=== PATIENT | male | born 1990 ===

== ENCOUNTER 2020-09-10 20:08 | Emergency (ER) | payer MEDICAID, SELFPAY ==
[2020-09-10 20:10] VITALS: BP 177/76; PULSE 91; RESP 18; TEMP 37.2; O2SAT 98; BMI 31.5
[2020-09-10 20:17] VITALS: BP 177/76; PULSE 100; RESP 18; TEMP 37.2; O2SAT 98
--- NOTE | 2020-09-10 21:14 | ED_ITS ---
HPI - Dental/Oral General Chief complaint: Dental/Oral Stated complaint: Facial swelling Time Seen by Provider: 09/10/20 21:14 Source: patient Mode of arrival: ambulatory Limitations: no limitations History of Present Illness HPI Narrative: This is a 30-year-old male without significant past medical history who presents with onset of progressive worsening of right-sided facial swelling that he feels is associated with dental infection, however denies any associated fevers, chills, dysphagia, dyspnea, ear pain, visual changes, or sinus pain. He states that this started last night and then began worsening throughout the day and he has treated it with [id number] ibuprofen with minimal improvement. Related Data Previous Rx's Medication Instructions Recorded amoxicillin-pot clavulanate 1 tab PO Q12H 7 Days #14 tab 09/10/20 [Augmentin] Allergies Allergy/AdvReac Type Severity Reaction Status Date / Time No Known Allergies Allergy Verified 09/10/20 20:09 [No Known Allergies*] Review of Systems Review of Systems: Pertinent positives and negatives as mentioned in the HPI and 10 point review of systems is otherwise negative. [facility] Past Medical History Source: nursing notes reviewed Medical History No known health problems Social History Social History Alcohol intake: current Alcohol intake frequency: holidays/special occasions only Alcohol type: hard liquor Smoked in Last 30 Days: No Use of substances other than those prescribed or required for medical reasons: No Advance Directives: No Advance Directives Information Provided: Yes Physical Exam Vital Signs: Vital Signs: Last Vital Signs Temp 98.9 F 09/10/20 20:17 Pulse 100 09/10/20 20:17 Resp 18 09/10/20 20:17 BP 177/76 H 09/10/20 20:17 Pulse Ox 98 09/10/20 20:17 Body Mass Index 31.5 VITAL SIGNS: Reviewed. GENERAL: Well developed, well nourished, in no acute distress. HEAD: Normocephalic/atraumatic, EYES: PERRLA, EOMI intact without pain, no nystagmus/pallor/icterus noted EARS: Ext canals without abnormality, TMs non-bulging and non-erythematous NOSE: Nares patent bilateral OROPHARYNX: no oral lesions noted, posterior pharynx clear and non-erythematous without noted tonsillar enlargement/erythema/exudates NECK: Supple, no adenopathy LUNGS: Normal breath sounds. No adventitious sounds or accessory muscle use. SpO2<98> CARDIOVASCULAR: Regular rate and rhythm without noted murmurs, no JVD or lower extremity edema. ABDOMEN: Soft, non-tender, non-distended with bowel sounds. No rigidity. No guarding. No palpable masses or hernias noted MUSCULOSKELETAL: No tenderness, deformities, or effusions noted on gross inspection. EXTREMITIES: No cyanosis, clubbing or edema. SKIN: Inspection of the skin reveals no rashes, ulcerations, jaundice, pallor, or petechiae. NEUROLOGIC: Alert and oriented x 4. Strength and sensation to light touch were grossly intact x 4. Course Course Course Narrative: This is a 30-year-old male with history and clinical presentation suggestive of possible sialadenitis and less likely dental infection,but doubt sinus infection / ear infection / herpes zoster. The plan was discussed with the patient and he understands that we will approach this by treating the possibility of a dental infection as well as instructions on initial interventions for a sialadenitis. patient will receive initial antibiotics here and then will be discharged with a prescription for remaining and instructed to follow-up with his primary care provider by calling the office tomorrow. Discharge Plan Discharge Clinical Impression: Dental caries, Sialadenitis Patient Disposition: Home, Self-Care Instructions: Dental Abscess (ED), Sialoadenitis (ED) Additional Instructions: 1. Tylenol 1000 mg, orally, every 6 hours as needed for pain control. Do not exceed 4000 mg within 24 hours. 2. ibuprofen 400 mg, orally with milk or food, every 6 hours as needed for pain control. 3. recommend using sour/lemon candies to induce increased salivation and the application of warm compresses to the side of the face with and gentle massage in the event that this is a blockage of the salivary duct. 4. Please follow-up with your primary care provider for further management. The patient and/or family acknowledge understanding of results (as applicable), diagnosis, treatment plan, need for follow up, and symptoms that should prompt a return to the emergency room. Prescriptions: New amoxicillin-pot clavulanate [Augmentin] 875-125 mg tablet 1 tab PO Q12H 7 Days Qty: 14 RF: 0 Referrals: Physician,Unknown [Primary Care Provider] - 2 days
[2020-09-10] MEDS: Amoxicillin/Potassium Clav 875 MG TABLET PO (21:20)
== END 2020-09-10 21:40 | disposition home or self-care (01) ==
LOC: HO.ED 21:23
PROVIDERS: Emergency Provider Student in an Organized Health Care Education/Training Program
DX: K02.9 Dental caries, unspecified (principal); K11.20 Sialoadenitis, unspecified
CPT/HCPCS: 99283; 99284

== ENCOUNTER 2024-04-22 10:21 | Outpatient (AMB) | payer MEDICAID, SELFPAY ==
--- NOTE | 2024-04-22 10:22 | MHC.OFFWIV ---
Intake Vital Signs 04/22/24 10:26 Height 5 ft 10 in Weight 286 lb BMI 41.0 BP 130/76 Blood Pressure Location Rt brachial Position Sitting Pulse 82 Pulse Source Pulse Oximeter Temp 98.4 F Temp Source Oral Pulse Oximetry (%) 97 Intake Visit Reasons: Rt Eye irritated and painful Intake Note: pt is here for eye irritation with pain Patient Tobacco Use Status: Never used Tobacco Allergies No Known Allergies Allergy (Verified 04/22/24 10:22) Do you need a note to return to daycare/school/sports/work: No HPI HPI Comments History of Present Illness Details Patient is a 33-year-old male here with 3 days of redness of his right eye. He states there was no injury to the eye; he noticed when he wakes up in the morning that is crusted shut. He denies wearing contacts. He denies any changes in his vision or blurry vision. He states it does crust over during the day a little bit. He states it is not painful. PFSH Social History Patient Tobacco Use Status: Never used Tobacco Review of Systems Const All systems reviewed & are unremarkable except as noted in HPI and below Physical Exam Vital Signs: Last Vital Signs Temp 98.4 F 04/22/24 10:26 Pulse 82 04/22/24 10:26 BP 130/76 04/22/24 10:26 Pulse Ox 97 04/22/24 10:26 BMI result Body Mass Index 41.0 Const General: cooperative, healthy appearing, comfortable, no acute distress and well developed Orientation/consciousness: patient oriented x3 Limitations: no limitations Eyes Visual William: normal visual william by confrontation Alignment and Position: alignment normal Periorbital: periorbital findings normal Eyelids: Yes eyelids normal Conjunctivae: conjunctival abnormal right conjunctival injection diffuse Pupils: Equal, round and reactive pupils present EOM: EOMs intact bilaterally Resp Effort & Inspection: normal respiratory effort and able to speak in complete sentences Neuro General: patient oriented x3 Cranial nerves: Yes Equal, round and reactive pupils present Assessment & Plan Assessment & Plan (1) Conjunctivitis of right eye: Code(s): H10.9 - Unspecified conjunctivitis Qualifiers: Conjunctivitis type: acute Acute conjunctivitis type: bacterial Qualified Code(s): H10.31 - Unspecified acute conjunctivitis, right eye Plan: Sent erythromycin ointment to pharmacy Plan See above Medications: New erythromycin 0.5 inches ophthalmic-Right QID 5 days 3.5 grams 0RF Coding Level of Care Code New Pt Level 3 (08467) Diagnoses Acute bacterial conjunctivitis of right eye H10.31 Conjunctivitis type: acute Acute conjunctivitis type: bacterial
[2024-04-22 10:26] VITALS: BP 130/76; PULSE 82; TEMP 36.9; O2SAT 97; BMI 41.0
== END 2024-04-22 10:40 | disposition home or self-care (01) ==
PROVIDERS: Visit Provider Physician Assistant
DX: H10.31 Unspecified acute conjunctivitis, right eye (principal)
CPT/HCPCS: 99203

== ENCOUNTER 2024-04-24 07:48 | Emergency (ER) | payer MEDICAID, SELFPAY ==
[2024-04-24 07:58] VITALS: BP 147/107; PULSE 90; TEMP 36.8; O2SAT 96; BMI 38.4
--- NOTE | 2024-04-24 10:39 | ED.EYEPROB ---
HPI - Eye Problem General Chief complaint: Eye Problems Stated complaint: quest pink eye Time Seen by Provider: 04/24/24 09:59 Source: patient Mode of arrival: ambulatory Limitations: no limitations History of Present Illness ED Provider: Dallas MARTIN HPI Narrative: 33-year-old male presents with red eyes bilaterally, he reports it started in his right eye and now spreading to his left eye despite being on erythromycin which he started yesterday. He reports it eye has been red since 04/22/2024, he reports throughout the day he has clear drainage however in the morning his eyes are glued shut with thick discharge. He denies pain associated with this. Patient does not wear contacts. No associated trauma. No associated pain with eye movements. No history of this in the past. Patient denies fevers, chills, upper respiratory symptoms, headache, vision changes, dizziness, weakness, sob, cp Related Data Previous Rx's ?Medication ?Instructions ?Recorded amoxicillin 875 mg-potassium 1 tab PO Q12H 7 days #14 tabs 09/10/20 clavulanate 125 mg tablet (Augmentin) cephalexin 500 mg tablet 500 mg PO Q6H 7 days #28 tabs 04/24/24 ofloxacin 0.3 % eye drops See Rx Instructions ophthalmic 04/24/24 (eye) .COMPLEX #10 mL Allergies Allergy/AdvReac Type Severity Reaction Status Date / Time No Known Allergies Allergy Verified 04/24/24 08:01 [No Known Allergies*] Review of Systems Review of Systems: Yes all other systems are reviewed and are negative PMFSH Past Medical History Attestation statement: The following information was validated with the patient. Source: old records reviewed and nursing notes reviewed Medical History No known health problems Social History Social History Alcohol intake: current Alcohol intake frequency: holidays/special occasions only Alcohol type: hard liquor Advance Directives: No Physical Exam Vital Signs: Vital Signs: Last Vital Signs Temp 98.3 F 04/24/24 07:58 Pulse 90 04/24/24 07:58 BP 147/107 H 04/24/24 07:58 Pulse Ox 96 04/24/24 07:58 O2 Del Method Room Air 04/24/24 07:58 BMI result Body Mass Index 38.4 vss Appearance: Alert.? Oriented X3.? No acute distress.? Head: Normocephalic, atraumatic, no step-offs or deformities Eyes: Pupils equal, round and reactive to light.? + red eyes b/l R >L, right eye with chemosis. Clear drainage b/l. EOMI pain free. Fluoro stain: unremarkable. no uptake. Negative sidels sign b/l. ENT: Pharynx normal.? Neck: Normal inspection.? Neck supple.? CVS: Normal heart rate and rhythm.? Pulses normal.? Respiratory: No respiratory distress.? Breath sounds normal.? Abdomen: Soft and nontender.? Skin: Skin warm and dry.? Normal skin color.? Normal skin turgor.? Extremities: No lower extremity edema.? No calf ttp. 5/5 strength to bilateral upper and lower extremities Back: No midline tenderness, no C-spine tenderness, full range of motion, no CVA tenderness bilaterally Neuro: Oriented X 3.? No motor deficit.? No sensory deficit. CN 2-12 intact Course Reevaluation(s) Reevaluation #1: Please refer to nursing notes for visual acuity. Will have him follow up with Ophthalmology. Ofloxacin sent to his pharmacy. Educated patient on diagnosis and treatment plan, answered all question, patient verbalizes understanding. At this time patient will be discharged home, advised to return with new or worsening symptoms. Educated on worrisome signs and symptoms and when to return. At this time I feel comfortable discharge home. Time: 10:45 Medical Decision Making Medical Decision Making [facility] Narrative: 1043 33-year-old male presents with bilateral red eyes. Painless. No trauma. Physical exam Eyes: Pupils equal, round and reactive to light.? + red eyes b/l R >L, right eye with chemosis. Clear drainage b/l. EOMI pain free. Fluoro stain: unremarkable. no uptake. Negative sidels sign b/l. History and physical exam concerning for conjunctivitis with associated ecchymosis and possible early periorbital cellulitis. No signs of orbital cellulitis corneal ulcer, ciliary flush, wet macular degeneration acute closed angle glaucoma, foreign body in eye. Plan visual acuity fluorescein stain. Differential Diagnosis Differential Diagnoses: The differential diagnosis associated with the presentation includes History and physical exam concerning for conjunctivitis with associated ecchymosis and possible early periorbital cellulitis. No signs of orbital cellulitis corneal ulcer, ciliary flush, wet macular degeneration acute closed angle glaucoma, foreign body in eye. Admission/Observation Consideration of admission/observation: Escalation of care including admission/observation considered Possible Consult Healthcare Provider Management of the patient was discussed with: Requisition Approver (Attending agrees with diagnosis and treatment plan recommends ofloxacin drops.) External Record Review External record reviewed: Outpatient record Prescription Management I considered prescription management with: Antibiotic (Ofloxacin drops) Critical Care Time Critical Care Time Critical Care Time: No Discharge Plan Discharge Clinical Impression: Bacterial conjunctivitis, Periorbital cellulitis, Hordeolum, Chemosis Patient Disposition: Home, Self-Care Instructions: Cellulitis (ED), Stye (ED), Periorbital Cellulitis in Adults (ED), Conjunctivitis (ED) Additional Instructions: Take your medications as prescribed. If you were prescribed antibiotics today, it is important that you take your medication to their entirety, do not skip any doses, do not finish them early. Follow-up with your primary care provider this week. Return to the emergency department with new or worsening symptoms. Such as fevers, chills, chest pain, shortness of breath, nausea, vomiting, dizziness, headache, vision changes, lethargy, painful eye movements In case of emergency call 911 Prescriptions: New cephalexin 500 mg tablet 500 mg PO Q6H 7 Days Qty: 28 0RF ofloxacin 0.3 % drops See Rx Instructions .ROUTE .COMPLEX Qty: 10 0RF Rx Instructions: put 1-2 drps into affected eye(s) every 2-4 h x 2 days, then 1-2 drps 4 times/day days 3-7 No Action amoxicillin-pot clavulanate [Augmentin] 875-125 mg tablet 1 tab PO Q12H 7 Days Qty: 14 0RF Referrals: Misael Ayon [Physician] - 2 days Physician,Cecilia J [Primary Care Provider] - 2 days Stand Alone Forms: Work/School Release Print Language: Libyan
[2024-04-24] MEDS: Fluorescein Sodium STRIP 1 STRIP EYE-BOTH (10:43)
--- NOTE | 2024-04-24 10:44 | PC.NURSE ---
visual acuity performed, provider to do additional testing before discharging
[2024-04-24 11:00] VITALS: BP 131/92; PULSE 74; RESP 18; TEMP 36.8; O2SAT 97
[2024-04-24 11:04] VITALS: BP 131/92; PULSE 74; RESP 18; TEMP 36.8; O2SAT 97
== END 2024-04-24 11:31 | disposition home or self-care (01) ==
PROVIDERS: Emergency Provider Emergency Medicine
DX: H10.9 Unspecified conjunctivitis (principal); L03.213 Periorbital cellulitis; H11.421 Conjunctival edema, right eye; H00.013 Hordeolum externum right eye, unspecified eyelid
CPT/HCPCS: 99283

== ENCOUNTER 2024-04-28 12:13 | Emergency (ER) | payer MEDICAID, SELFPAY ==
--- NOTE | 2024-04-28 12:36 | ED_ITS ---
HPI - General Adult General Chief complaint: Eye Problems Stated complaint: eye issues Time Seen by Provider: 04/28/24 14:05 Source: patient Mode of arrival: ambulatory Limitations: no limitations History of Present Illness ED Provider: Tracie HOGAN narrative: Patient is a 33-year-old male presenting to the emergency department with complaint of bilateral eye redness, clear drainage and foreign body sensation to left eye. Patient reports symptoms have been ongoing for approximately 1 week. He was initially prescribed erythromycin ointment which did not improve his symptoms. Then presented to this emergency department on 04/24 and was prescribed ofloxacin drops as well as possible early periorbital cellulitis. Symptoms have not improved with any of these treatments. Does report some nasal congestion but denies cough or difficulty breathing, fevers, sore throat, ear pain. Denies changes in vision. Denies pain with eye movements. complaint: eye irritation Onset (ago): day(s) Location: eyes Treatments prior to arrival: other Related Data Previous Rx's ?Medication ?Instructions ?Recorded amoxicillin 875 mg-potassium 1 tab PO Q12H 7 days #14 tabs 09/10/20 clavulanate 125 mg tablet (Augmentin) cephalexin 500 mg tablet 500 mg PO Q6H 7 days #28 tabs 04/24/24 ofloxacin 0.3 % eye drops See Rx Instructions ophthalmic 04/24/24 (eye) .COMPLEX #10 mL Allergies Allergy/AdvReac Type Severity Reaction Status Date / Time No Known Allergies Allergy Verified 04/28/24 12:39 [No Known Allergies*] Review of Systems 2 Review of Systems: As per HPI. Yes all other systems are reviewed and are negative Constitutional: Constitutional: Reports as per HPI [facility] Past Medical History Medical History No known health problems Social History Social History Alcohol intake: current Alcohol intake frequency: holidays/special occasions only Alcohol type: hard liquor Advance Directives: No Advance Directives Information Provided: Yes Do you have a plan to hurt others: No Plan Physical Exam ED Vital Signs: Vital Signs - 24 hr 04/28/24 12:37 Temperature 97.3 F Pulse Rate 82 Respiratory Rate 18 Blood Pressure 157/106 H Pulse Oximetry 100 Oxygen Delivery Method Room Air BMI result Body Mass Index 39.1 Vital signs have been reviewed and appear to be correct. Blood pressure elevated. Heart rate normal. Respiratory rate normal. Temperature normal. Oxygen saturation normal. Const General: cooperative and no acute distress Orientation/consciousness: oriented to person, oriented to place, oriented to time and patient oriented x3 Limitations: no limitations HENMT Head: Yes normocephalic and Yes atraumatic Ears: external ears normal General nose exam: Normal external nose present Face and sinus: Yes face symmetric Mouth: oropharynx normal and moist mucous membranes Throat: Yes uvula midline Eyes Other: clear drainage bilaterally Periorbital: periorbital findings normal Eyelids: Yes eyelids normal Conjunctivae: conjunctival abnormal bilateral conjunctival injection diffuse Corneas: corneas abnormal on the left (Fluorescein uptake in 25% of cornea, in superior, medial quarter) fluorescein used; with no foreign body noted and fluorescein used Pupils: Equal, round and reactive pupils present EOM: EOMs intact bilaterally (no pain with EOMs bilaterally) Neck Neck: Yes normal visual inspection and Yes supple Resp Effort & Inspection: normal respiratory effort and able to speak in complete sentences Auscultation: clear to auscultation bilaterally Cardio Rate: regular rate Rhythm: regular rhythm Heart sounds: S1 normal heart sound present and S2 normal heart sound present Skin General skin exam: elasticity normal and turgor normal Neuro General: oriented to person, oriented to place, oriented to time, patient oriented x3, moves all extremities, no focal motor deficits and CN's II-XI intact bilaterally Cranial nerves: Yes Equal, round and reactive pupils present Cognition (Neuro): normal cognition Extrem General: Yes full ROM, Yes no pedal edema and Yes no calf tenderness Psych Mental Status: mental status grossly normal Affect: normal affect Thought process: Normal thought process present Course Course Course Narrative: RME performed by Amena Bautista PA-C. Patient is a 33 year old assigned male at presenting to the emergency department with continued draining from his left eye. Patient states that he was seen here on 04/24 for left eye pain/drainage and was prescribed drops however, it is continuing to cause hims problems. Detailed physical exam and review of systems are deferred to the inside sales coordinator. Medications Administered Discontinued Medications Generic Name Dose Route Start Last Admin Trade Name Freq PRN Reason Stop Dose Admin Tetracaine HCl 1 drop 04/28/24 15:13 04/28/24 15:19 Tetracaine Hcl 0.5% Oph Leila 5 Ml Drops EYE-BOTH 04/28/24 15:14 1 drop ONCE ONE Administration Medical Decision Making Medical Decision Making [facility] Narrative: Patient is a 33-year-old male presenting to the emergency department with complaint of bilateral eye redness, clear drainage and foreign body sensation to left eye. On exam patient is awake, A+Ox3, BP elevated, VS otherwise WNL, afebrile, normal neurological exam without focal deficits, physical exam findings as above. Given reported symptoms and physical exam findings, initial differential includes viral conjunctivitis, corneal abrasion versus ulceration. No visible foreign body on Moreno lamp exam with fluorescein stain. No signs of orbital cellulitis, acute angle closure glaucoma. Negative flu/Covid. Findings discussed with Dr. Ayon who recommends that patient continue On the ofloxacin drops overnight and wants patient to call his office in the morning for further evaluation and management. Patient updated on plan and all questions answered. Return precautions discussed at bedside. Patient and verbalized understanding of and agreement with plan. Differential Diagnosis Differential Diagnoses: The differential diagnosis associated with the presentation includes As per [facility] Consult Healthcare Provider Management of the patient was discussed with: Manager Endoscopy (Dr. Ayon) Lab Data [facility] Lab Attestation statement: I reviewed the patient's lab results. As per [facility] Labs: Lab Results 04/28/24 Range/Units 14:11 Influenza Type A (PCR) NEGATIVE (Negative) Influenza Type B (PCR) NEGATIVE (Negative) RSV RNA Qual (PCR) NEGATIVE (Negative) SARS-CoV-2 RNA (RT-PCR) NEGATIVE (Negative) External Record Review External record reviewed: Inpatient record, Office record and Outpatient record Prescription Management I considered prescription management with: Antibiotic Discharge Plan Discharge Clinical Impression: Corneal abrasion, Conjunctivitis Patient Disposition: Home, Self-Care Instructions: Conjunctivitis (ED), Corneal Abrasion (DC) Additional Instructions: You were evaluated in the emergency department today for ongoing redness and discomfort to both eyes. Your exam in the emergency department today was abnormal, and your symptoms were discussed with Dr. Ayon. He recommends continuing with the ofloxacin drops overnight and wants you to call his office first thing tomorrow morning, the office opens at 7:30am. Do not rub or touch your eyes. You can use [id number] artificial tears as needed for discomfort. Return to the emergency department if you develop changes in vision, severe eye pain, fever or any other concerning symptoms. Prescriptions: No Action amoxicillin-pot clavulanate [Augmentin] 875-125 mg tablet 1 tab PO Q12H 7 Days Qty: 14 0RF cephalexin 500 mg tablet 500 mg PO Q6H 7 Days Qty: 28 0RF ofloxacin 0.3 % drops See Rx Instructions .ROUTE .COMPLEX Qty: 10 0RF Rx Instructions: put 1-2 drps into affected eye(s) every 2-4 h x 2 days, then 1-2 drps 4 times/day days 3-7 Referrals: Misael Ayon [Physician] - Stand Alone Forms: Work/School Release Interventions: ED Discharge Assessment Last Done: 04/28/24 15:55 Print Language: Yemeni
[2024-04-28 12:37] VITALS: BP 157/106; PULSE 82; RESP 18; TEMP 36.3; O2SAT 100; BMI 39.1
[2024-04-28 15:17] LABS: Influenza A PCR NEGATIVE (Negative); Influenza B PCR NEGATIVE (Negative); Resp Syncy Virus RNA Qual PCR NEGATIVE (Negative); SARS COV2 PCR INHOUSE NEGATIVE (Negative)
[2024-04-28] MEDS: Tetracaine HCl 0.5% Oph Sol 5 ML DROPS 1 DROP EYE-BOTH (15:19)
[2024-04-28] MEDS: Fluorescein Sodium STRIP 1 STRIP EYE-BOTH (15:48)
[2024-04-28 15:55] VITALS: BP 139/94; PULSE 78; RESP 16; TEMP 36.9; O2SAT 96
== END 2024-04-28 16:13 | disposition home or self-care (01) ==
PROVIDERS: Registered Nurse Emergency; Emergency Provider Emergency Medicine
DX: S05.02XA Injury of conjunctiva and corneal abrasion without foreign body, left eye, initial encounter (principal); H57.13 Ocular pain, bilateral; H10.9 Unspecified conjunctivitis; Y33.XXXA Other specified events, undetermined intent, initial encounter; Y93.9 Activity, unspecified; Y92.9 Unspecified place or not applicable; Y99.8 Other external cause status; Z03.818 Encounter for observation for suspected exposure to other biological agents ruled out
CPT/HCPCS: 0241U; 99282; 99283